=== PATIENT | male | born 1940 | race Caucasian/White ===

== ENCOUNTER 2023-11-21 20:49 | Emergency (ER) | payer OTHER ==
[~2023-11-21] VITALS: Ht 182.9 cm; Wt 56.7 kg
[2023-11-21 21:17] VITALS: BP_SYST 147; PULSE 60; RESP 20; TEMP 98.1; O2SAT 95
[2023-11-21] MEDS ORDERED: LIDOCAINE/EPI 1% 1:100000 20 ML VIAL ONE (21:44)
[2023-11-21] MEDS ORDERED: BACITRACIN 1 GM OINT TP ONE (21:54)
[2023-11-21 22:05] VITALS: BP_SYST 147; PULSE 60; RESP 20; TEMP 98.1; O2SAT 95
== END 2023-11-21 22:05 | disposition home or self-care (01) ==
LOC: SED 20:49
DX: S71.011A Laceration without foreign body, right hip, initial encounter (principal); Z88.0 Allergy status to penicillin; Z85.828 Personal history of other malignant neoplasm of skin; Y84.8 Other medical procedures as the cause of abnormal reaction of the patient, or of later complication, without mention of misadventure at the time of the procedure; Y93.89 Activity, other specified; Y92.89 Other specified places as the place of occurrence of the external cause; Y99.8 Other external cause status
CPT/HCPCS: 99282